=== PATIENT | male | born 1940 | race Caucasian/White ===

== ENCOUNTER 2018-03-16 09:45 | Emergency (ER) | payer OTHER ==
[2018-03-16] MEDS ORDERED: WATER FOR INJ,STERILE 10 ML ONE (10:34)
[2018-03-16] MEDS ORDERED: TETANUS & DIPHTHERIA TOX,ADULT 0.5 ML VIAL ONE (10:34)
[2018-03-16] MEDS ORDERED: CEFAZOLIN SODIUM 1 GM/VIAL ONE (10:34)
--- NOTE | 2018-03-16 11:09 | RAD REPORT ---
EXAM DESCRIPTION: RAD - Forearm Right - 03/16/2018 10:56 am CLINICAL HISTORY: Foreign Body COMPARISON: No comparisons FINDINGS: No fracture, dislocation or radiopaque foreign body. Small olecranon spur is noted.
--- NOTE | 2018-03-16 11:52 | ER ---
Nurse's Notes [facility] Name: Evaristo Adams Age: 78 yrs Sex: Male : 1940 Arrival Date: 03/16/2018 Time: 09:49 Bed 13 Private MD: Heriberto Norris T Diagnosis: Right forearm puncture wound Presentation: 03/16 09:56 Presenting complaint: Patient states: He was doing a wood working project when he got a aj1 large splinter stuck into his right forearm. States injury happened at approximately 9:00 this morning. Puncture wound noted to right forearm, no bleeding noted at this time. Transition of care: patient was not received from another setting of care. Onset of symptoms was March 16, 2018 at 09:00. Risk Assessment: Do you want to hurt yourself or someone else? Patient reports no desire to harm self or others. Initial Sepsis Screen: Does the patient meet any 2 criteria? No. Patient's initial sepsis screen is negative. Does the patient have a suspected source of infection? No. Patient's initial sepsis screen is negative. Care prior to arrival: None. 09:56 Method Of Arrival: Ambulatory aj1 09:56 Acuity: CAITLIN 4 aj1 Triage Assessment: 10:04 General: Appears in no apparent distress. comfortable, Behavior is calm, cooperative, aj1 appropriate for age. Pain: Denies pain. Neuro: Level of Consciousness is awake, alert, obeys commands. Cardiovascular: Patient's skin is warm and dry. Respiratory: Airway is patent Respiratory effort is even, unlabored, Respiratory pattern is regular, symmetrical. Derm: Skin is pink, warm \\T\\ dry. normal. Musculoskeletal: Circulation, motion, and sensation intact. Injury Description: Puncture sustained to palmar aspect of right forearm. Historical: - Allergies: 10:04 Sulfa (Sulfonamide Antibiotics); aj1 10:04 Lipitor; aj1 10:04 Prevacid; aj1 10:04 Metoclopramide; aj1 10:04 Neomycin; aj1 10:04 Vytorin 10-10; aj1 - Home Meds: 10:04 valsartan 320 mg oral tab 1 tab once daily [Active]; metoprolol tartrate 50 mg Oral tab aj1 1 tab once daily [Active]; simvastatin 80 mg Oral tab daily [Active]; esomeprazole magnesium 40 mg oral cpDR 1 cap once daily [Active]; levothyroxine 75 mcg tab 1 tab once daily [Active]; niacin 500 mg Oral tab 1 tab daily [Active]; folic acid 400 mcg Oral tab 1 tab once daily [Active]; aspirin 81 mg Oral chew 1 tab once daily [Active]; calcium carbonate 650 mg calcium (1,625 mg) Oral tab daily [Active]; multivitamin oral cap daily [Active]; montelukast 10 mg oral tab 1 tab once daily [Active]; fluticasone 50 mcg/actuation nasal spsn 1 spray once daily [Active]; fexofenadine 180 mg Oral tab 1 tab once daily [Active]; Metamucil Smooth Texture Oral twice a day [Active]; Colace 100 mg oral cap 2 caps once daily [Active]; - PMHx: 10:04 Hyperlipidemia; Hypertension; Hypothyroidism; GERD; aj1 - PSHx: 10:04 triple bypass; rotator cuff repair; aj1 - Immunization history:: Flu vaccine is up to date. Last tetanus immunization: unknown. - Social history:: Smoking status: Patient/guardian denies using tobacco. - Ebola Screening: : Patient denies travel to an Ebola-affected area in the 21 days before illness onset. Screenin:10 Abuse screen: Denies threats or abuse. Nutritional screening: No deficits noted. tw2 Tuberculosis screening: No symptoms or risk factors identified. Fall Risk None identified. Assessment: 10:26 Reassessment: provider at bedside at this time. General: Appears in no apparent tw2 distress. well groomed, Behavior is calm, cooperative, appropriate for age. Pain: Complains of pain in right arm and palmar aspect of right forearm. Neuro: Level of Consciousness is awake, alert, obeys commands, Oriented to person, place, time, Appropriate for age. Cardiovascular: Denies chest pain, shortness of breath, Heart tones S1 S2 Capillary refill < 3 seconds Patient's skin is warm and dry. Respiratory: Airway is patent Respiratory effort is even, unlabored, Respiratory pattern is regular, symmetrical, Breath sounds are clear bilaterally. GI: No signs and/or symptoms were reported involving the gastrointestinal system. : No signs and/or symptoms were reported regarding the genitourinary system. EENT: No signs and/or symptoms were reported regarding the EENT system. Derm: foreign body noted in palmar aspect of right forearm, pt states "it was a wood splinter, i tried to get out but it broke off in there". Musculoskeletal: Circulation, motion, and sensation intact. Range of motion: intact in all extremities. 10:54 Reassessment: Patient appears in no apparent distress at this time. No changes from tw2 previously documented assessment. Patient and/or family updated on plan of care and expected duration. Pain level reassessed. Patient is alert, oriented x 3, equal unlabored respirations, skin warm/dry/pink. Vital Signs: 10:04 BP 150 / 84; Pulse 62; Resp 18; Temp 97.8(O); Pulse Ox 98% on R/A; Weight 86.18 kg (R); aj1 Height 6 ft. 0 in. (182.88 cm) (R); Pain 0/10; 11:22 BP 143 / 74; Pulse 56; Resp 17; Pulse Ox 99% on R/A; tw2 12:25 BP 149 / 74; Pulse 66; Resp 17; Pulse Ox 98% on R/A; tw2 10:04 Body Mass Index 25.77 (86.18 kg, 182.88 cm) aj1 ED Course: 09:49 Patient arrived in ED. mr 09:49 Heriberto Norris MD is Private Physician. mr 09:51 Berny Loaiza MD is Attending Physician. kdr 09:58 Triage completed. aj1 10:04 Arm band placed on Patient placed in an exam room. aj1 10:10 Annie Jacobo, RN is Primary Nurse. tw2 10:10 Bed in low position. Adult w/ patient. Pulse ox on. NIBP on. tw2 10:55 X-ray completed. Portable x-ray completed in exam room. jr1 10:56 Forearm Right XRAY In Process Unspecified. EDMS 11:50 Harish Varghese MD is Referral Physician. kdr 12:26 Dressings: Glenys x 1 palmar aspect of right forearm non-adherent dressing x 1 palmar tw2 aspect of right forearm 4X4s X 2; palmar aspect of right forearm. 12:26 No provider procedures requiring assistance completed. Patient did not have IV access tw2 during this emergency room visit. Administered Medications: 10:40 Drug: Tetanus-Diphtheria Toxoid Adult 0.5 ml {Rider Ticket Worker: [employer]. Exp: tw2 05/04/2020. Lot #: [id number]. } Route: IM; Site: right deltoid; 11:53 Follow up: Response: No adverse reaction tw2 10:45 Drug: Ancef 1 grams Route: IM; Site: right gluteus; tw2 11:54 Follow up: Response: No adverse reaction tw2 Outcome: 11:51 Discharge ordered by . kdr 12:27 Discharged to home ambulatory, with significant other. tw2 12:27 Condition: stable 12:27 Discharge instructions given to patient, significant other, Instructed on discharge instructions, follow up and referral plans. medication usage, wound care, Demonstrated understanding of instructions, follow-up care, medications, wound care, Prescriptions given X 2. 12:27 Patient left the ED. tw2 Signatures: Dispatcher [employer] EDVianney Nava, MATTY RN Berny Dixon MD MD kdr Rivera, Maria mr Scotty, Flakita dowd1 Annie Jacobo RN RN tw2
--- NOTE | 2018-03-16 11:52 | EDPHYS ---
Physician Documentation [facility] Name: Evaristo Adams Age: 78 yrs Sex: Male : 1940 Arrival Date: 03/16/2018 Time: 09:49 Bed 13 Private MD: Heriberto Norris T ED Physician Berny Loaiza HPI: 03/16 18:37 This 78 yrs old Male presents to ER via Ambulatory with complaints of Foreign kdr body in arm. 18:37 The patient or guardian complains of injury, penetrating injury, Wood splinter, a kdr puncture wound, Splinter of wood. The complaints affect the dorsal aspect of right forearm. Context: The problem was sustained at home. Onset: The symptoms/episode began/occurred just prior to arrival. Treatment prior to arrival includes: no previous treatment. Modifying factors: The symptoms are alleviated by nothing. the symptoms are aggravated by nothing. Associated signs and symptoms: The patient has no apparent associated signs or symptoms. Severity of symptoms: At their worst the symptoms were mild, in the emergency department the symptoms are unchanged. The patient has not experienced similar symptoms in the past. 18:37 large splinter punctured his right forearm. He was able to remove some but not all of kdr the wood.. Historical: - Allergies: 10:04 Sulfa (Sulfonamide Antibiotics); aj1 10:04 Lipitor; aj1 10:04 Prevacid; aj1 10:04 Metoclopramide; aj1 10:04 Neomycin; aj1 10:04 Vytorin 10-10; aj1 - Home Meds: 10:04 valsartan 320 mg oral tab 1 tab once daily [Active]; metoprolol tartrate 50 mg Oral tab aj1 1 tab once daily [Active]; simvastatin 80 mg Oral tab daily [Active]; esomeprazole magnesium 40 mg oral cpDR 1 cap once daily [Active]; levothyroxine 75 mcg tab 1 tab once daily [Active]; niacin 500 mg Oral tab 1 tab daily [Active]; folic acid 400 mcg Oral tab 1 tab once daily [Active]; aspirin 81 mg Oral chew 1 tab once daily [Active]; calcium carbonate 650 mg calcium (1,625 mg) Oral tab daily [Active]; multivitamin oral cap daily [Active]; montelukast 10 mg oral tab 1 tab once daily [Active]; fluticasone 50 mcg/actuation nasal spsn 1 spray once daily [Active]; fexofenadine 180 mg Oral tab 1 tab once daily [Active]; Metamucil Smooth Texture Oral twice a day [Active]; Colace 100 mg oral cap 2 caps once daily [Active]; - PMHx: 10:04 Hyperlipidemia; Hypertension; Hypothyroidism; GERD; aj1 - PSHx: 10:04 triple bypass; rotator cuff repair; aj1 - Immunization history:: Flu vaccine is up to date. Last tetanus immunization: unknown. - Social history:: Smoking status: Patient/guardian denies using tobacco. - Ebola Screening: : Patient denies travel to an Ebola-affected area in the 21 days before illness onset. ROS: 18:37 Constitutional: Negative for fever, chills, and weight loss, Eyes: Negative for injury, kdr pain, redness, and discharge, Neck: Negative for injury, pain, and swelling, Cardiovascular: Negative for chest pain, palpitations, and edema, Respiratory: Negative for shortness of breath, cough, wheezing, and pleuritic chest pain, Abdomen/GI: Negative for abdominal pain, nausea, vomiting, diarrhea, and constipation. 18:37 MS/extremity: Positive for pain, tenderness, of the dorsal aspect of right forearm. Exam: 18:37 Constitutional: This is a well developed, well nourished patient who is awake, alert, kdr and in no acute distress. 18:37 Musculoskeletal/extremity: Extremities: pain, Apparent FB to right forearm about 1.5 cm in length. Some distance from the entrance wound. Vital Signs: 10:04 BP 150 / 84; Pulse 62; Resp 18; Temp 97.8(O); Pulse Ox 98% on R/A; Weight 86.18 kg (R); aj1 Height 6 ft. 0 in. (182.88 cm) (R); Pain 0/10; 11:22 BP 143 / 74; Pulse 56; Resp 17; Pulse Ox 99% on R/A; tw2 12:25 BP 149 / 74; Pulse 66; Resp 17; Pulse Ox 98% on R/A; tw2 10:04 Body Mass Index 25.77 (86.18 kg, 182.88 cm) aj1 MDM: 11:51 Patient medically screened. kdr 18:37 Data reviewed: vital signs, radiologic studies. Counseling: I had a detailed discussion kdr with the patient and/or guardian regarding: the historical points, exam findings, and any diagnostic results supporting the discharge/admit diagnosis, radiology results, the need for outpatient follow up, Given distance of FB from entrance wound, concerned that this may need to be opened up more fully and washed out - will defer to plastics. The patient has seen a plastics MD previously and will call today for an appointment. 03/16 10:32 Order name: Forearm Right XRAY; Complete Time: 11:35 kdr 03/16 11:50 Order name: Misc. Order: Clean and dress wound; Complete Time: 12:08 kdr Administered Medications: 10:40 Drug: Tetanus-Diphtheria Toxoid Adult 0.5 ml {Uphol[employer] Outside: [employer]. Exp: 05/04/2020. Lot #: [id number]. } Route: IM; Site: right deltoid; 11:53 Follow up: Response: No adverse reaction tw2 10:45 Drug: Ancef 1 grams Route: IM; Site: right gluteus; tw2 11:54 Follow up: Response: No adverse reaction tw2 Disposition: 03/16/18 11:51 Discharged to Home. Impression: Right forearm puncture wound. - Condition is Stable. - Discharge Instructions: Puncture Wound, [id number]. - Prescriptions for Keflex 500 mg Oral Capsule - take 1 capsule by ORAL route every 6 hours for 7 days; 28 capsule. Tramadol 50 mg Oral Tablet - take 1 tablet by ORAL route every 8 hours as needed; 12 tablet. - Medication Reconciliation Form, Thank You Letter, Antibiotic Education, Prescription Opioid Use form. - Follow up: Harish Varghese MD; When: 2 - 3 days; Reason: If symptoms return, Further diagnostic work-up, Recheck today's complaints, Continuance of care, Re-evaluation by your physician. - Problem is new. - Symptoms have improved. Signatures: Dispatcher [employer] EDVianney Nava RN RN aj1 Berny Loaiza MD MD kdr Annie Jacobo RN RN tw2 Corrections: (The following items were deleted from the chart) 12:27 11:51 03/16/2018 11:51 Discharged to Home. Impression: Right forearm puncture wound. tw2 Condition is Stable. Forms are Medication Reconciliation Form, Thank You Letter, Antibiotic Education, Prescription Opioid Use. Follow up: Harish Varghese; When: 2 - 3 days; Reason: If symptoms return, Further diagnostic work-up, Recheck today's complaints, Continuance of care, Re-evaluation by your physician. Problem is new. Symptoms have improved. kdr
== END 2018-03-16 12:27 | disposition home or self-care (01) ==
LOC: ER 09:45
DX: S51.841A Puncture wound with foreign body of right forearm, initial encounter (principal); X58.XXXA Exposure to other specified factors, initial encounter; Y92.009 Unspecified place in unspecified non-institutional (private) residence as the place of occurrence of the external cause; Z88.2 Allergy status to sulfonamides; Z88.8 Allergy status to other drugs, medicaments and biological substances; E78.5 Hyperlipidemia, unspecified; E03.9 Hypothyroidism, unspecified; I10 Essential (primary) hypertension
CPT/HCPCS: 73090; 90714; 96372; 99284; J0690

== ENCOUNTER 2024-03-23 00:38 | Observation (INO) | payer OTHER ==
[2024-03-23] MEDS ORDERED: ONDANSETRON 4 MG/2 ML VIAL ONE (01:06)
[2024-03-23] MEDS ORDERED: ASPIRIN 81 MG CHEWABLE TABLET ONE (01:07)
[2024-03-23] MEDS ORDERED: MORPHINE 4 MG/ML SYR ONE ×2 (01:07→07:46)
[2024-03-23] MEDS ORDERED: HEPARIN 5000 UNIT/ML 1 ML VIAL ONE ×2 (01:07→14:01)
[2024-03-23 02:01] LABS: Absolute Eosinophils 0.1 K/uL (0-0.5); Absolute Lymphocytes (CBC) 1.8 K/uL (0.7-4.9); Absolute Monocytes 0.8 K/uL (0.1-1.3); Absolute Neutrophil 4.6 K/uL (1.8-8.0); Basophils % 0.6 % (0-1.3); Hematocrit 43.8 % (39.6-49.0); Hemoglobin 14.4 g/dL (13.6-17.9); Lymphocytes % 24.3 % (15.3-44.8); MCH 29.6 pg (27.0-35.0); MCHC 32.8 g/dL (32.0-36.0); MCV 90.1 fL (80-100); MPV 8.8 fL (7.6-11.3); Monocytes % 10.6 % (3.3-12.3); Neutrophils % 62.5 % (41.7-73.7); Platelets 225 thou/uL (152-406); RBC Red Blood Cell Count 4.86 M/uL (4.33-5.43); Red Cell Distribution Width 13.2 % (12.1-15.2)
[2024-03-23 02:06] LABS: ALT/SGPT 23 U/L (16-61); AST/SGOT 14 U/L (15-37); Albumin 4.3 g/dL (3.4-5.0); Albumin/Globulin Ratio 1.2 (1.1-1.8); Alkaline Phosphatase 69 U/L (45-117); Anion Gap 10.8 mEq/L (5.0-15.0); BUN Blood Urea Nitrogen 17 mg/dL (7-18); Bicarbonate 24 mEq/L (21-32); Bilirubin Total 0.4 mg/dL (0.2-1.0); Globulin 3.6 g/dL (2.3-3.5); Glomerular Filtration Rate 51 ml/min (=/>90); Glucose Level 127 mg/dL (74-106); Magnesium 2.6 mg/dL (1.6-2.4); NT PRO-BNP 267 pg/mL (<450); Potassium 3.8 mEq/L (3.5-5.1); Protein, Total 7.9 g/dL (6.4-8.2); Sodium Level 138 mEq/L (136-145); Troponin High Sensitivity 48.2 pg/mL (<58.9)
[2024-03-23] MEDS ORDERED: HEPARIN/D5W 25,000 UNIT/500 ML BAG IV ONE (02:24)
[2024-03-23 02:36] LABS: Bilirubin Direct < 0.2 mg/dL (0-0.2); Bilirubin Indirect, Calculated 0.2 mg/dL (0.2-0.8)
[2024-03-23 03:17] LABS: PT Prothrombin Time 11.4 SECONDS (9.4-12.5); Protime INR 1.02
[2024-03-23] MEDS ORDERED: MORPHINE 4 MG/ML SYR IV PRN (06:10)
[2024-03-23 07:32] LABS: PTT, Activated Partial Thromb 30.8 SECONDS (24.3-36.9)
[2024-03-23] MEDS ORDERED: SODIUM CHLORIDE 0.9% 10ML INJ IV PRN (07:57)
[2024-03-23] MEDS: DOCOSAHEXANOIC AC/EPA 1000 MG PO SCH (09:00)
[2024-03-23] MEDS: ASPIRIN EC 81 MG TAB PO SCH (09:00)
[2024-03-23] MEDS: PANTOPRAZOLE 40 MG INJ IVP SCH (09:00)
[2024-03-23] MEDS: TICAGRELOR 90 MG TABLET PO ONE ×2 (11:55→12:45)
[2024-03-23] MEDS ORDERED: LIDOCAINE 1% 20 ML MDV ONE (14:01)
[2024-03-23] MEDS ORDERED: HEPA 1000U/500MLS 1,000 UNIT/500 ML BAG IV ONE (14:01)
[2024-03-23] MEDS ORDERED: FENTANYL CITR 100 MCG/2 ML ONE (14:01)
[2024-03-23] MEDS ORDERED: MIDAZOLAM HCL 2 MG/2 ML INJ ONE (14:01)
[2024-03-23] MEDS ORDERED: CLOPIDOGREL 75 MG TABLET ONE (14:02)
[2024-03-23] MEDS ORDERED: TICAGRELOR 90 MG TABLET PO ONE (14:02)
[2024-03-23] MEDS ORDERED: HEPARIN 10,000 UNIT/10 ML VIAL IV ONE (14:02)
[2024-03-23] MEDS ORDERED: ASPIRIN 325 MG TAB ONE (14:03)
--- NOTE | 2024-03-23 14:11 | RAD REPORT ---
EXAM DESCRIPTION: RAD - Chest Single View - 03/23/2024 1:59 pm CLINICAL HISTORY: CHEST PAIN Chest pain. COMPARISON: <Comparisons> FINDINGS: Portable technique limits examination quality. The lungs are grossly clear. The heart is upper limit of normal in size. Small left pleural effusion. Sternotomy wires present. IMPRESSION: No acute intrathoracic process suspected.
[2024-03-23] MEDS ORDERED: NA CHLORIDE 0.9% 500 ML ONE (14:15)
[2024-03-23] MEDS: NITROGLYCERIN 0.4 MG/TAB SL ONE (16:10)
[2024-03-23] MEDS: MORPHINE 4 MG/ML SYR ONE (16:11)
--- NOTE | 2024-03-23 16:18 | ER ---
Nurse's Notes [facility] Name: Evaristo Adams Age: 84 yrs Sex: Male : 1940 Arrival Date: 03/23/2024 Time: 00:37 Bed 20 Private MD: Diagnosis: Unstable angina pectoris Presentation: 03/23 00:43 Chief complaint: Patient states: Started having chest pain that radiates to left arm. vc1 Coronavirus screen: Vaccine status: Patient reports receiving the 2nd dose of the covid vaccine. plus 3 boosters Client denies travel out of the [place] in the last 14 days. At this time, the client does not indicate any symptoms associated with coronavirus-19. Ebola Screen: Patient negative for fever greater than or equal to 101.5 degrees Fahrenheit, and additional compatible Ebola Virus Disease symptoms Patient denies exposure to infectious person. Patient denies travel to an Ebola-affected area in the 21 days before illness onset. No symptoms or risks identified at this time. Initial Sepsis Screen: Does the patient meet any 2 criteria? No. Patient's initial sepsis screen is negative. Does the patient have a suspected source of infection? No. Patient's initial sepsis screen is negative. Risk Assessment: Do you want to hurt yourself or someone else? Patient reports no desire to harm self or others. Onset of symptoms was March 23, 2024. 00:43 Method Of Arrival: Ambulatory vc1 00:43 Acuity: CAITLIN 3 vc1 Triage Assessment: 00:51 General: Appears in no apparent distress. comfortable, well groomed, well developed, vc1 Behavior is cooperative, anxious. Pain: Complains of pain in right breast and left breast Pain radiates to left arm Pain currently is 8 out of 10 on a pain scale. Quality of pain is described as sharp. EENT: No deficits noted. No signs and/or symptoms were reported regarding the EENT system. Neuro: Level of Consciousness is awake, alert, obeys commands, Oriented to person, place, time, situation, Appropriate for age. Cardiovascular: Reports chest pain, Rhythm is sinus rhythm. Respiratory: Airway is patent Respiratory effort is even, unlabored, Respiratory pattern is regular, symmetrical, Breath sounds are clear bilaterally. GI: Abdomen is flat, non-distended. Derm: Skin is intact, is healthy with good turgor, Skin is dry, Skin is normal, Skin temperature is warm. Historical: - Allergies: 00:46 Lipitor; vc1 00:46 Metoclopramide; vc1 00:46 Neomycin; vc1 00:46 Prevacid; vc1 00:46 Sulfa (Sulfonamide Antibiotics); vc1 00:46 Vytorin 10-10; vc1 - PMHx: 00:46 GERD; Hyperlipidemia; Hypothyroidism; Hypertension; vc1 - PSHx: 00:46 triple bypass (yr); Shoulder (yr); vc1 - Immunization history:: Client reports receiving the 2nd dose of the Covid vaccine, Pneumococcal vaccine is up to date, Flu vaccine is up to date. - Infectious Disease History:: Denies. - Social history:: Smoking status: Patient denies any tobacco usage or history of. - Family history:: not pertinent. Screenin:48 [facility] ED Fall Risk Assessment (Adult) History of falling in the last 3 months, vc1 including since admission No falls in past 3 months (0 pts) Confusion or Disorientation No (0 pts) Intoxicated or Sedated No (0 pts) Impaired Gait No (0 pts) Mobility Assist Device Used No (0 pt) Altered Elimination No (0 pt) Score/Fall Risk Level 0 - 2 = Low Risk Oriented to surroundings, Maintained a safe environment, Educated pt \T\ family on fall prevention, incl call for assistance when getting out of bed. Abuse screen: Denies threats or abuse. Nutritional screening: No deficits noted. Tuberculosis screening: No symptoms or risk factors identified. Assessment: 00:48 General: Appears in no apparent distress. comfortable, Behavior is calm, cooperative, jj7 appropriate for age. Pain: Complains of pain in chest, left arm and mouth Pain began suddenly, 2 hours ago. Cardiovascular: Reports chest pain. 07:00 Reassessment: Patient appears in no apparent distress at this time. Patient and/or db family updated on plan of care and expected duration. Pain level reassessed. Patient is alert, oriented x 3, equal unlabored respirations, skin warm/dry/pink. General: Appears in no apparent distress. comfortable, Behavior is calm, cooperative. Pain: Complains of pain in chest. Pain: Pain radiates to left arm. Neuro: Level of Consciousness is awake, alert, obeys commands, Oriented to person, place, time, situation. Respiratory: Airway is patent Respiratory effort is even, unlabored, Respiratory pattern is regular, symmetrical. 08:00 Reassessment: Patient appears in no apparent distress at this time. Patient and/or db family updated on plan of care and expected duration. Pain level reassessed. Patient is alert, oriented x 3, equal unlabored respirations, skin warm/dry/pink. 09:00 Reassessment: Patient appears in no apparent distress at this time. Patient and/or db family updated on plan of care and expected duration. Pain level reassessed. Patient is alert, oriented x 3, equal unlabored respirations, skin warm/dry/pink. Vital Signs: 00:43 BP 147 / 73; Pulse 69; Resp 19; Pulse Ox 100% ; Weight 88 kg; Height 6 ft. 0 in. ; Pain vc1 8/10; 01:45 BP 138 / 76; Pulse 67; Resp 15; Pulse Ox 97% ; jj7 02:45 BP 136 / 97; Pulse 66; Resp 16; Pulse Ox 97% ; jj7 03:45 BP 153 / 83; Pulse 84; Resp 20; Pulse Ox 98% ; jj7 04:45 BP 134 / 71; Pulse 65; Resp 13; Pulse Ox 96% ; jj7 05:45 BP 142 / 76; Pulse 69; Resp 18; Pulse Ox 98% ; jj7 07:00 BP 146 / 82; Pulse 69; Resp 18; Temp 98; Pulse Ox 99% ; db 07:45 BP 135 / 78; Pulse 68; Resp 15; Pulse Ox 96% on R/A; db 00:43 Body Mass Index 26.31 (88.00 kg, 182.88 cm) vc1 00:43 Pain Scale: Adult vc1 [place] Coma Score: 01:18 Eye Response: spontaneous(4). Motor Response: obeys commands(6). Verbal Response: sp4 oriented(5). Total: 15. NIH Stroke Scale Scores: 06:04 NIHSS Score: 0 sp4 ED Course: 00:37 Patient arrived in ED. jj6 00:43 Conrad Ramos MD is Attending Physician. sp4 00:46 Triage completed. vc1 00:48 Provided Education on: USE OF CALL MEADOWS. jj7 00:48 Warm blanket given. jj7 00:48 Inserted saline lock: 20 gauge in left antecubital area, using aseptic technique. Blood jj7 collected. 00:52 Savi Noe RN is Primary Nurse. jj7 00:53 Patient has correct armband on for positive identification. Placed in gown. Bed in low vc1 position. as400 programmer on. Pulse ox on. NIBP on. 06:11 Ashley Morales MD is Hospitalizing Provider. sp4 07:20 Report given to EDGARD STARR. jj7 08:00 Inserted saline lock: 22 gauge in right antecubital area, using aseptic technique. db Blood collected. Flushed with 10 mL NS. 09:54 No provider procedures requiring assistance completed. Patient admitted, IV remains in db place. O2 via ROOMAIR. 09:59 Patient placed in an exam room. db Administered Medications: 01:20 Drug: Heparin (IL-Bolus No thrombolytic) - HEParin IVP 60 units/kg IVP once; Max 5000 jj7 units {Co-Signature: pc2 (Ramila Camarena RN).} Route: IVP; Site: left antecubital; 02:00 Follow up: Response: No adverse reaction jj7 01:21 Drug: morphine IVP or IV 4 mg IVP once over 4 mins Route: IVP; Infused Over: 4 mins; jj7 Site: left antecubital; 02:00 Follow up: Response: Marked relief of symptoms; Pain is decreased jj7 02:18 Follow up: Response: Marked relief of symptoms; Pain is decreased jj7 01:22 Drug: Aspirin PO Chewable Tablet 324 mg PO once; 81 mg tablets x 4 Route: PO; jj7 02:00 Follow up: Response: No adverse reaction jj7 01:22 Drug: Ondansetron IVP 4 mg IVP once; over 2 minutes Route: IVP; Site: left antecubital; jj7 02:00 Follow up: Response: No adverse reaction jj7 02:51 Drug: Heparin ([place] Drip) 12 units/kg/hr - ([place] [address] units, D5W IV 500 ml) IV at jj7 calculated rate Per protocol; Max initial rate 1000 units/hr {Co-Signature: pc2 (Ramila Camarena RN).} Route: IV; Rate: calculated rate; Site: left antecubital; 09:00 Follow up: Response: No adverse reaction db 07:52 Drug: morphine IVP or IV 4 mg IVP once over 4 mins Route: IVP; Infused Over: 4 mins; db Site: left antecubital; 09:00 Follow up: Response: No adverse reaction db Medication: 00:52 VIS not applicable for this client. vc1 Outcome: 06:11 Decision to Hospitalize by Provider. sp4 09:54 Admitted to Med/surg accompanied by nurse, via wheelchair, room 205, Other BEDSIDE db REPORT GIVEN. HEPARIN HANDOFFF DONE AT BEDSIDE 09:54 Condition: stable 09:54 Instructed on the need for admit, 10:00 Patient left the ED. db NIH Stroke Scale - NIH Stroke Score Date: 03/23/2024 Time: 06:04 Total Score = 0 10. Dysarthria (speech clarity - read or repeat words) - 0(Normal) 11. Extinction and Inattention (visual/tactile/auditory/spatial/personal) - 0(No abnormality) 1a. Level of Consciousness (LOC) - 0(Alert) 1b. Level of Consciousness (LOC) (Month \T\ Age) - 0(Both) 1c. LOC Commands (Open \T\ Closes Eyes/Insurance Sales Producer) - 0(Both) 2. Best Gaze (Lateral Gaze Paresis) - 0(Normal) 3. Visual Field Loss - 0(No visual loss) 4. Facial Palsy - 0(Normal) 5a. Left Arm: Motor (10-second hold) - 0(No drift) 5b. Right Arm: Motor (10-second hold) - 0(No drift) 6a. Left Leg: Motor (5-second hold - always test supine) - 0(No drift) 6b. Right Leg: Motor (5-second hold - always test supine) - 0(No drift) 7. Limb Ataxia (finger/nose \T\ heel/martinez - test with eyes open) - 0(Absent) 8. Sensory Loss (pinprick arms/legs/face) - 0(Normal) 9. Best Language: Aphasia (description/naming/reading) - 0(No aphasia) Initials: sp4 Signatures: Flakita Flores jj6 Suma Lamb RN RN vc1 Savi Noe RN RN jj7 Franca Morales RN RN db Conrad Ramos MD MD sp4 Ramila Camarena RN pc2 Corrections: (The following items were deleted from the chart) 00:50 00:43 BP 147 / 73; Pulse 194bpm; Resp 19bpm; Pulse Ox 100%; 88 kg; Height 6 ft. vc1 0 in.; BMI: 26.3; Pain 8/10, Adult; vc1
--- NOTE | 2024-03-23 16:18 | EDPHYS ---
Physician Documentation [facility] Name: Evaristo Adams Age: 84 yrs Sex: Male : 1940 Arrival Date: 03/23/2024 Time: 00:37 Bed 20 Private MD: ED Physician Conrad Ramos HPI: 03/23 00:43 This 84 yrs old Male presents to ER via Unassigned with complaints of Chest sp4 Pain. 06:04 Patient with history of CAD and CABG presents with persistent chest pressure / pain sp4 that is non exertional . Historical: - Allergies: 00:46 Lipitor; vc1 00:46 Metoclopramide; vc1 00:46 Neomycin; vc1 00:46 Prevacid; vc1 00:46 Sulfa (Sulfonamide Antibiotics); vc1 00:46 Vytorin 10-10; vc1 - PMHx: 00:46 GERD; Hyperlipidemia; Hypothyroidism; Hypertension; vc1 - PSHx: 00:46 triple bypass (yr); Shoulder (yr); vc1 - Immunization history:: Client reports receiving the 2nd dose of the Covid vaccine, Pneumococcal vaccine is up to date, Flu vaccine is up to date. - Infectious Disease History:: Denies. - Social history:: Smoking status: Patient denies any tobacco usage or history of. - Family history:: not pertinent. ROS: 06:04 Constitutional: Negative for fever, chills, and weight loss, Positive chest pain sp4 06:04 All other systems are negative, Exam: 01:18 ECG was reviewed by the Attending Physician. 00:35 time for EKG sp4 06:04 Constitutional: This is a well developed, well nourished patient who is awake, alert, sp4 and in no acute distress. Head/Face: Normocephalic, atraumatic. Eyes: Pupils equal round and reactive to light, extra-ocular motions intact. Lids and lashes normal. Conjunctiva and sclera are not injected. Cornea within normal limits. Periorbital areas with no swelling, redness, or edema. ENT: Nares patent. No nasal discharge, no septal abnormalities noted. Tympanic membranes are normal and external auditory canals are clear. Oropharynx with no redness, swelling, or masses, exudates, or evidence of obstruction, uvula midline. Mucous membranes moist. Neck: Trachea midline, no thyromegaly or masses palpated, and no cervical lymphadenopathy. Supple, full range of motion without nuchal rigidity, or vertebral point tenderness. Chest/axilla: Normal chest wall appearance and motion. Nontender with no deformity. No lesions are appreciated. Cardiovascular: Regular rate and rhythm with a normal S1 and S2. No gallops, murmurs, or rubs. Normal PMI, no JVD. No pulse deficits. Respiratory: Lungs have equal breath sounds bilaterally, clear to auscultation and percussion. No rales, rhonchi or wheezes noted. No increased work of breathing, no retractions or nasal flaring. Abdomen/GI: Soft, with normal bowel sounds. No distension or tympany. No guarding or rebound. No evidence of tenderness throughout. Back: No spinal tenderness. No costovertebral tenderness. Skin: Warm, dry with normal turgor. Normal color with no rashes, no lesions, and no evidence of cellulitis. MS/ Extremity: Pulses equal, no cyanosis. Neurovascular intact. Full, normal range of motion. Neuro: Awake and alert, GCS 15, oriented to person, place, time, and situation. Cranial nerves II-XII grossly intact. Motor strength 5/5 in all extremities. Sensory grossly intact. Psych: Awake, alert, with orientation to person, place and time. Behavior, mood, and affect are within normal limits Vital Signs: 00:43 BP 147 / 73; Pulse 69; Resp 19; Pulse Ox 100% ; Weight 88 kg; Height 6 ft. 0 in. ; Pain vc1 8/10; 01:45 BP 138 / 76; Pulse 67; Resp 15; Pulse Ox 97% ; jj7 02:45 BP 136 / 97; Pulse 66; Resp 16; Pulse Ox 97% ; jj7 03:45 BP 153 / 83; Pulse 84; Resp 20; Pulse Ox 98% ; jj7 04:45 BP 134 / 71; Pulse 65; Resp 13; Pulse Ox 96% ; jj7 05:45 BP 142 / 76; Pulse 69; Resp 18; Pulse Ox 98% ; jj7 07:00 BP 146 / 82; Pulse 69; Resp 18; Temp 98; Pulse Ox 99% ; db 07:45 BP 135 / 78; Pulse 68; Resp 15; Pulse Ox 96% on R/A; db 00:43 Body Mass Index 26.31 (88.00 kg, 182.88 cm) vc1 00:43 Pain Scale: Adult vc1 NIH Stroke Scale Scores: 06:04 NIHSS Score: 0 sp4 Kamila Coma Score: 01:18 Eye Response: spontaneous(4). Motor Response: obeys commands(6). Verbal Response: sp4 oriented(5). Total: 15. MDM: 00:50 Patient medically screened. sp4 06:04 Differential diagnosis: acute myocardial infarction, acute pericarditis, anxiety, sp4 coronary artery disease chest wall pain, congestive heart failure esophagitis, gastritis. HEART Score: History: Highly Suspicious (2), ECG: Significant ST-deviation (2), Age: > or = 65 years (2), Risk Factors: > or = 3 Risk factors for atherosclerotic disease (2), Troponin: < or = 1 x Normal Limit (0), Total Score = 8. The patient was given aspirin in the Emergency Department. Data reviewed: vital signs, nurses notes, lab test result(s), EKG, radiologic studies, plain films. Consideration of Admission/Observation Patient was admitted/placed on observation. Escalation of care including admission/observation considered. Management of patient was discussed with the following: Hospitalist: Admission team . Unleavened Dough Mixer: Tahira WRIGHT Cardiology . ED course: Admitted to Medicine, initiated Heparin . 03/23 00:44 Order name: XRAY Chest (1 view) [facility] 03/23 00:44 Order name: EKG; Complete Time: 00:44 [facility] 03/23 00:44 Order name: Cardiac monitoring; Complete Time: 00:58 [facility] 03/23 00:44 Order name: EKG - Nurse/Tech; Complete Time: 00:58 [facility] 03/23 00:44 Order name: IV Saline Lock; Complete Time: 00:58 [facility] 03/23 00:44 Order name: Labs collected and sent; Complete Time: 00:58 [facility] 03/23 00:44 Order name: O2 Per Protocol; Complete Time: 00:58 [facility] 03/23 00:44 Order name: O2 Sat Monitoring; Complete Time: 00:58 4 EC:18 Rate is 69 beats/min. Rhythm is regular, Normal Sinus Rhythm. Left axis deviation sp4 noted. TX interval is prolonged. QRS interval is normal. QT interval is normal. No Q waves. T waves are Normal. ST Segment is depressed in leads V2, V3. Clinical impression: No evidence of ischemia. Interpreted by me. Reviewed by me. Administered Medications: 01:20 Drug: Heparin (IL-Bolus No thrombolytic) - HEParin IVP 60 units/kg IVP once; Max 5000 jj7 units {Co-Signature: pc2 (Ramila Camarena RN).} Route: IVP; Site: left antecubital; 02:00 Follow up: Response: No adverse reaction jj7 01:21 Drug: morphine IVP or IV 4 mg IVP once over 4 mins Route: IVP; Infused Over: 4 mins; jj7 Site: left antecubital; 02:00 Follow up: Response: Marked relief of symptoms; Pain is decreased jj7 02:18 Follow up: Response: Marked relief of symptoms; Pain is decreased jj7 01:22 Drug: Aspirin PO Chewable Tablet 324 mg PO once; 81 mg tablets x 4 Route: PO; jj7 02:00 Follow up: Response: No adverse reaction jj7 01:22 Drug: Ondansetron IVP 4 mg IVP once; over 2 minutes Route: IVP; Site: left antecubital; jj7 02:00 Follow up: Response: No adverse reaction jj7 02:51 Drug: Heparin (IL Drip) 12 units/kg/hr - ([place] [address] units, D5W IV 500 ml) IV at jj7 calculated rate Per protocol; Max initial rate 1000 units/hr {Co-Signature: pc2 (Ramila Camarena RN).} Route: IV; Rate: calculated rate; Site: left antecubital; 09:00 Follow up: Response: No adverse reaction db 07:52 Drug: morphine IVP or IV 4 mg IVP once over 4 mins Route: IVP; Infused Over: 4 mins; db Site: left antecubital; 09:00 Follow up: Response: No adverse reaction db Disposition Summary: 03/23/24 06:11 Hospitalization Ordered Notes: Hospitalization Status: Inpatient Admission sp4 Provider: Ashley Morales sp4 Location: Telemetry/[facility] (Inpatient) sp4 Condition: Stable sp4 Problem: new sp4 Symptoms: have improved sp4 Bed/Room Type: Standard sp4 Room Assignment: 205(03/23/24 07:35) hb Diagnosis - Unstable angina pectoris sp4 Forms: - Medication Reconciliation Form sp4 - SBAR form sp4 - Leadership Thank You Letter sp4 NIH Stroke Scale - NIH Stroke Score Date: 03/23/2024 Time: 06:04 Total Score = 0 10. Dysarthria (speech clarity - read or repeat words) - 0(Normal) 11. Extinction and Inattention (visual/tactile/auditory/spatial/personal) - 0(No abnormality) 1a. Level of Consciousness (LOC) - 0(Alert) 1b. Level of Consciousness (LOC) (Month \T\ Age) - 0(Both) 1c. LOC Commands (Open \T\ Closes Eyes/Senior It Recruiter) - 0(Both) 2. Best Gaze (Lateral Gaze Paresis) - 0(Normal) 3. Visual Field Loss - 0(No visual loss) 4. Facial Palsy - 0(Normal) 5a. Left Arm: Motor (10-second hold) - 0(No drift) 5b. Right Arm: Motor (10-second hold) - 0(No drift) 6a. Left Leg: Motor (5-second hold - always test supine) - 0(No drift) 6b. Right Leg: Motor (5-second hold - always test supine) - 0(No drift) 7. Limb Ataxia (finger/nose \T\ heel/martinez - test with eyes open) - 0(Absent) 8. Sensory Loss (pinprick arms/legs/face) - 0(Normal) 9. Best Language: Aphasia (description/naming/reading) - 0(No aphasia) Initials: sp4 Signatures: Dispatcher [employer] EDUT Anabella Garcia RN RN hb Suma Lamb, RN RN vc1 Savi Noe RN RN jj7 Franca Morales RN Conrad Hoskins MD MD sp4 Ramila Camarena RN pc2 Corrections: (The following items were deleted from the chart) 00:45 00:44 BASIC METABOLIC PANEL+C.LAB.BRZ ordered. EDMS EDMS 00:45 00:44 CBC+H.LAB.BRZ ordered. EDMS EDMS 00:45 00:44 HEPATIC FUNCTION+C.LAB.BRZ ordered. EDMS EDMS 00:45 00:44 MAGNESIUM+C.LAB.BRZ ordered. EDMS EDMS 00:45 00:44 PROBNP+C.LAB.BRZ ordered. EDMS EDMS 00:45 00:44 PROTIME (+INR)+COAG.LAB.BRZ ordered. EDMS EDMS 00:45 00:44 Troponin High Sensitivity+C.LAB.BRZ ordered. EDMS EDMS 01:21 01:18 Rate is 69 beats/min. Rhythm is regular, Normal Sinus Rhythm. Left axis sp4 deviation noted. TX interval is prolonged. QRS interval is normal. QT interval is normal. No Q waves. T waves are Normal. No ST changes noted. Clinical impression: No evidence of ischemia. Interpreted by me. Reviewed by me. sp4 07:35 06:11 sp4 hb
[2024-03-23] MEDS ORDERED: NITROGLYCERIN 0.4 MG/TAB SL PRN (17:08)
[2024-03-23] MEDS: METOPROLOL TAR 25 MG TAB PO SCH (18:00)
[2024-03-23] MEDS: METOPROLOL TAR 25 MG TAB ONE (19:03)
--- NOTE | 2024-03-23 19:36 | P.HP ---
Certification for Inpatient Patient admitted to: Observation With expected LOS: <2 Midnights Patient will require the following post-hospital care: None Practitioner: I am a practitioner with admitting privileges, knowledge of patient current condition, hospital course, and medical plan of care. Services: Services provided to patient in accordance with Admission requirements found in Title 42 Section 412.3 of the Code of Federal Regulations <Imelda Brunner - Last Filed: 03/23/24 08:01> Patient History Date of Service: 03/23/24 Reason for admission: CP with EKG changes History of Present Illness: Mr. Adams is an 84 yo with a pmh of prostate ca, hypertension, hyperlipidemia, CAD s/p CABG, hypothyroidism, and arthritis. He was seen a few days ago in the ED for chest pain and deemed safe to f/u outpatient. He is due next month for an outpatient stress test. He returned to the ED early this am with c/o chest pain intermittently over the left precordial area. He states this lasted longer than normal and worried him so he came in for evaluation. In the ED it was noted that he had deep t wave depressions in V2-V3. The hospitalist program was asked to admit him for further evaluation and cardiology consultation. He was placed on a Heparin drip in the ED. We requested a stress test be performed but secondary to a nationwide communication failure, no lexiscan can be obtained and the test must be delayed. We will admit Mr. Adams for further evaluation and await cardiology direction. Home medications list reviewed: Yes (amlodipine, flomax, fish oil, fluticasone, pepcid) - Past Medical/Surgical History Diabetic: No -: HTN -: HLD -: CAD s/p CABG -: prostate ca -: hypothyroidism -: arthritis -: CABG -: left rotator cuff Psychosocial/ Personal History: Lives at home with his , plays golf, active - Family History Mother -: Heart disease Brother -: Heart disease, Other (see notes) ( at 30) Sister -: Heart disease, Cancer - Social History Smoking Status: Unknown if ever smoked Alcohol use: No CD- Drugs: No Caffeine use: Yes Place of Residence: Home <Imelda Brunner - Last Filed: 03/23/24 08:01> Date of Service: 03/23/24 <Phan Shah - Last Filed: 03/24/24 11:29> Allergies ezetimibe [From Zetia] Allergy (Verified 07/21/16 13:44) Rash lansoprazole [From Prevacid] Allergy (Verified 07/21/16 13:45) unknown metoclopramide Allergy (Verified 07/21/16 13:44) Shortness of breath neomycin Allergy (Verified 07/21/16 13:45) Rash simvastatin [From Vytorin 10-10] Allergy (Unverified 03/16/18 12:31) Unknown Sulfa (Sulfonamide Antibiotics) Allergy (Verified 07/21/16 13:44) Rash atorvastatin [From Lipitor] Adverse Reaction (Verified 07/21/16 13:44) increased cholesterol Home Medications: Fexofenadine HCl [Jada Allergy] 180 mg PO DAILY 07/21/16 Fluticasone Propionate [Flonase Allergy Relief] 9.9 ml NS DAILY 07/21/16 Folic Acid 400 mcg PO DAILY 07/21/16 Levothyroxine [Synthroid] 75 mcg PO [id number] 07/21/16 Metoprolol Succinate [Toprol Xl] 25 mg PO DAILY WITH BREAKFAST 07/21/16 Simvastatin [Zocor] 40 mg PO DAILY AFTER SUPPER 07/21/16 Amlodipine [Norvasc] 10 mg PO DAILY 03/23/24 Aspirin [Aspirin EC 81 MG] 81 mg PO DAILY 03/23/24 Docusate Sodium [Stool Softener] 100 mg PO DAILY 03/23/24 Famotidine [Pepcid] 20 mg PO BID 03/23/24 L.acidoph,Paracasei, B.lactis [Probiotic] 1 each PO DAILY 03/23/24 Montelukast [Singulair] 10 mg PO DAILY 03/23/24 Psyllium Husk [Metamucil] 1 dose PO DAILY 03/23/24 Tamsulosin [Flomax] 0.8 mg PO BEDTIME 03/23/24 icosapent ethyL [Vascepa 1 gm Cap] 2 gm PO BID 03/23/24 Review of Systems 10-point ROS is otherwise unremarkable Cardiovascular: Chest Pain, Light Headedness <Brunner,Imelda Keny - Last Filed: 03/23/24 08:01> Physical Examination - Physical Exam General: Alert, In no apparent distress, Oriented x3 HEENT: Atraumatic, Normocephalic Neck: Supple, 2+ carotid pulse no bruit Respiratory: Clear to auscultation bilaterally, Normal air movement Cardiovascular: No edema, Normal pulses, Regular rate/rhythm, Normal S1 S2 Capillary refill: <2 Seconds Gastrointestinal: Soft and benign Musculoskeletal: No clubbing, No swelling Integumentary: No rashes Neurological: Normal speech, Normal tone, Normal affect Lymphatics: No axilla or inguinal lymphadenopathy External genitalia: Deferred Rectal: Deferred - Studies Laboratory Data (last 24 hrs) 03/23/24 03/23/24 03/23/24 01:15 01:15 01:15 WBC 7.30 Hgb 14.4 Hct 43.8 Plt Count 225 PT 11.4 INR 1.02 Sodium 138 Potassium 3.8 BUN 17 Creatinine 1.37 H Glucose 127 H Magnesium 2.6 H Total Bilirubin 0.4 AST 14 L ALT 23 Alkaline Phosphatase 69 <Imelda Brunner - Last Filed: 03/23/24 08:01> - Studies Laboratory Data (last 24 hrs) 03/23/24 03/23/24 03/23/24 08:12 08:10 06:10 WBC Hgb Hct Plt Count PT INR APTT 64.8 H Cancelled Sodium Potassium BUN Creatinine Glucose Magnesium Total Bilirubin AST ALT Alkaline Phosphatase Triglycerides Cancelled Cholesterol Cancelled HDL Cholesterol Cancelled Cholesterol/HDL Ratio Cancelled 03/23/24 03/23/24 03/23/24 01:15 01:15 01:15 WBC 7.30 Hgb 14.4 Hct 43.8 Plt Count 225 PT 11.4 INR 1.02 APTT 30.8 Sodium 138 Potassium 3.8 BUN 17 Creatinine 1.37 H Glucose 127 H Magnesium 2.6 H Total Bilirubin 0.4 AST 14 L ALT 23 Alkaline Phosphatase 69 Triglycerides Cholesterol HDL Cholesterol Cholesterol/HDL Ratio 03/23/24 03/23/24 03/23/24 00:44 00:44 00:44 WBC Cancelled Hgb Cancelled Hct Cancelled Plt Count Cancelled PT Cancelled INR Cancelled APTT Sodium Cancelled Potassium Cancelled BUN Cancelled Creatinine Cancelled Glucose Cancelled Magnesium Cancelled Total Bilirubin Cancelled AST Cancelled ALT Cancelled Alkaline Phosphatase Cancelled Triglycerides Cholesterol HDL Cholesterol Cholesterol/HDL Ratio <Phan Shah - Last Filed: 03/24/24 11:29> Assessment and Plan - Plan Angina with EKG changes Cardiology consult Heparin drip started in ED ECHO NM stress - unable to do today Morphine 4mg q 4h prn NPO for now and advance to [facility] post cardiology ok tele monitor and trend s/s, troponin HTN Metoprolol 25mg po BID HLD Simvastatin per home medication dosing Arthritis pain control Hypothyroidism Levothyroxine .75 mg VTE/GI prophylaxis on heparin drip/protonix Discharge Plan: Home Plan to discharge in: 24 Hours - Advance Directives Does patient have a Living Will: No Does patient have a Durable POA for Healthcare: No <Imelda Brunner - Last Filed: 03/23/24 08:01> Date of Service: 03/23/24 Patient was seen and examined. Events of the last 24 hours have been noted. Spoke with with ALEJANDRO regarding patient's clinical picture after evaluating and examining the patient independently. I performed a substantial part of the MDM during this patient's care today. I personally made or approved the documented management plan and acknowledge its risk of complications. I agree with the findings and documentation provided in the ALEAJNDRO's notes. <Phan Shah - Last Filed: 03/24/24 11:29>
--- NOTE | 2024-03-23 19:41 | P.CNS ---
Date of Consult: 03/23/24 Chief Complaint: CP with EKG changes History of Present Illness: Patient with PMH of CAD s/p CABG in 2004, HTN, HLD, Presented with chest pain that started tuesday but got worse overnight and on way to the ER,pressure like sensation, no radiation, no palpitations, no syncope. Allergies ezetimibe [From Zetia] Allergy (Verified 07/21/16 13:44) Rash lansoprazole [From Prevacid] Allergy (Verified 07/21/16 13:45) unknown metoclopramide Allergy (Verified 07/21/16 13:44) Shortness of breath neomycin Allergy (Verified 07/21/16 13:45) Rash simvastatin [From Vytorin 10-10] Allergy (Unverified 03/16/18 12:31) Unknown Sulfa (Sulfonamide Antibiotics) Allergy (Verified 07/21/16 13:44) Rash atorvastatin [From Lipitor] Adverse Reaction (Verified 07/21/16 13:44) increased cholesterol Home Medications: Fexofenadine HCl [Jada Allergy] 180 mg PO DAILY 07/21/16 Fluticasone Propionate [Flonase Allergy Relief] 9.9 ml NS DAILY 07/21/16 Folic Acid 400 mcg PO DAILY 07/21/16 Levothyroxine [Synthroid] 75 mcg PO [id number] 07/21/16 Metoprolol Succinate [Toprol Xl] 25 mg PO DAILY WITH BREAKFAST 07/21/16 Simvastatin [Zocor] 40 mg PO DAILY AFTER SUPPER 07/21/16 Amlodipine [Norvasc] 10 mg PO DAILY 03/23/24 Aspirin [Aspirin EC 81 MG] 81 mg PO DAILY 03/23/24 Docusate Sodium [Stool Softener] 100 mg PO DAILY 03/23/24 Famotidine [Pepcid] 20 mg PO BID 03/23/24 L.acidoph,Paracasei, B.lactis [Probiotic] 1 each PO DAILY 03/23/24 Montelukast [Singulair] 10 mg PO DAILY 03/23/24 Psyllium Husk [Metamucil] 1 dose PO DAILY 03/23/24 Tamsulosin [Flomax] 0.8 mg PO BEDTIME 03/23/24 icosapent ethyL [Vascepa 1 gm Cap] 2 gm PO BID 03/23/24 - Past Medical/Surgical History Diabetic: No -: HTN -: HLD -: CAD s/p CABG -: prostate ca -: hypothyroidism -: arthritis -: CABG -: left rotator cuff Psychosocial/ Personal History: Lives at home with his , plays golf, active - Family History Mother Medical History: Heart disease Brother Medical History: Heart disease, Other (see notes) Sister Medical History: Heart disease, Cancer - Social History Smoking Status: Former smoker Alcohol use: No CD- Drugs: No Caffeine use: Yes Place of Residence: Home Review of Systems 10-point ROS is otherwise unremarkable Physical Examination General: Alert, In no apparent distress HEENT: Atraumatic, PERRLA, Mucous membr. moist/pink, EOMI, Sclerae nonicteric Neck: Supple, 2+ carotid pulse no bruit, No LAD, Without JVD or thyroid abnormality Respiratory: Clear to auscultation bilaterally, Normal air movement Cardiovascular: Regular rate/rhythm, Normal S1 S2 Gastrointestinal: Normal bowel sounds, No tenderness Musculoskeletal: No tenderness Integumentary: No rashes Neurological: Normal gait, Normal speech, Normal tone, Normal affect Lymphatics: No axilla or inguinal lymphadenopathy Laboratory Data (last 24 hrs) 03/23/24 03/23/24 03/23/24 08:12 01:15 01:15 WBC 7.30 Hgb 14.4 Hct 43.8 Plt Count 225 PT 11.4 INR 1.02 APTT 64.8 H 30.8 Sodium Potassium BUN Creatinine Glucose Magnesium Total Bilirubin AST ALT Alkaline Phosphatase 03/23/24 01:15 WBC Hgb Hct Plt Count PT INR APTT Sodium 138 Potassium 3.8 BUN 17 Creatinine 1.37 H Glucose 127 H Magnesium 2.6 H Total Bilirubin 0.4 AST 14 L ALT 23 Alkaline Phosphatase 69 - Problems (1) NSTEMI (non-ST elevated myocardial infarction) Current Visit: Yes Status: Acute Plan: patient with history of CAD s/p CABG x3, troponin elevated coronary angiogram ASA 81 mg daily Brilinta 180 x1 continue heparin drip. (2) HTN (hypertension) Current Visit: Yes Status: Acute Plan: resume patient home medications get echo (3) HLD (hyperlipidemia) Current Visit: Yes Status: Acute Plan: continue statins
[2024-03-23] MEDS: ATORVASTATIN 20 MG TAB PO SCH (21:00)
[2024-03-23] MEDS: TAMSULOSIN 0.4 MG SR CAP PO SCH (21:12)
--- NOTE | 2024-03-24 02:12 | OP ---
Date of Procedure: 03/23/2024 Surgeon: Nazario Hoffmann Procedures Performed: 1.Left heart catheterization. 2.Selective coronary angiogram of bypass graft. 3.Percutaneous coronary intervention of the saphenous vein graft to the right posterior descending a rtery with Synergy 3.0 x 16 mm drug-eluting stent. Indication For Procedure: [id number] SD. Complications: None. Estimated Blood Loss: Less than 50 cc. Access: Right common femoral artery, closed by an Angio-Seal. Sedation Time: 40 minutes with 2 of Versed and 75 of fentanyl. Description Of Procedure: After risks, benefits, and alternatives were explained to the patient, the patient agreed to proceed with the procedure and signed informed consent. The patient was brought b ack to the mill laborer, prepped and draped in sterile fashion. Time-out was performed. Sedation was ad ministered. Next, the right common femoral artery ultrasound-guided micropuncture technique was obta ined. A 6-Japanese sheath was advanced without any difficulty. Next, a JL4 catheter for selective ang iogram of the left coronary system, that was exchanged for a JR4 catheter into the LV cavity. LVEDP was obtained. Pullback did not show any gradient. Same catheter was used for selective angiogram of the right coronary system and then the catheter was pulled back to the SVG to OM angiogram that was later pulled back for the subclavian and it was exchanged over a long J-wire to the 4-Japanese ALY cath eter that we used for selective angiogram of the GUNTER to LAD and that was later exchanged for a multi purpose catheter for selective angiogram of the right SVG to the RPDA. This catheter was exchanged w ith a multipurpose guide 6-Japanese to the SVG to the RPDA. Runthrough wire was passed across the lesi on. Next, Synergy 3.0 x 16 mm drug-eluting stent was placed across the lesion. After heparin was ad ministered, an ACT was therapeutic. Repeat angiogram shows KENDRA-2 flow so nitroglycerin was given IC repeatedly until the improvement of the flow in the arteries to KENDRA-3 flow. Repeat angiogram shows KENDRA-3 flow, no dissections or stent expansion. The wire was removed and catheter was removed over a J-wire and sheath was removed and Angio-Seal applied. Hemostasis was achieved, and the patient was moved back to Recovery in stable condition. Findings: 1.Left main is normal. 2.LAD mid occluded. 3.D1 small proximal 70% disease. 4.Left circ ostial to proximal 70% to 80% disease, gives 2 OMs with diffuse 50% disease. 5.RCA mid occluded. 6.Grafts. 7.GUNTER to LAD is patent. 8.SVG to RPDA mid 95% disease status post PCI with Synergy 3.0 x 16 mm drug-eluting stent. 9.SVG to OM is occluded. Assessment And Plan: 1.Significant saphenous vein graft to right posterior descending artery disease status post percutan eous coronary intervention with Synergy 3.0 x 16 mm drug-eluting stent. 2.Occluded saphenous vein graft to obtuse marginal with significant proximal left circ disease, plan will be to do an outpatient stress test to evaluate for possible interventions in the proximal and t he circ. Plan: 1.Aspirin 81 mg daily for life. 2.Brilinta 90 mg p.o. b.i.d. for 12 months. EYAL Voice ID: [id number] Report ID: [id number]
[2024-03-24 05:36] LABS: Absolute Eosinophils 0.1 K/uL (0-0.5); Absolute Monocytes 0.9 K/uL (0.1-1.3); Absolute Neutrophil 5.8 K/uL (1.8-8.0); Basophils % 0.4 % (0-1.3); Eosinophils % 1.3 % (0-4.4); Hematocrit 37.4 % (39.6-49.0); Hemoglobin 12.8 g/dL (13.6-17.9); Lymphocytes % 12.5 % (15.3-44.8); MCH 30.6 pg (27.0-35.0); MCHC 34.1 g/dL (32.0-36.0); MCV 89.8 fL (80-100); Monocytes % 11.1 % (3.3-12.3); Neutrophils % 74.7 % (41.7-73.7); Platelets 213 thou/uL (152-406); RBC Red Blood Cell Count 4.17 M/uL (4.33-5.43); Red Cell Distribution Width 12.9 % (12.1-15.2)
[2024-03-24 05:53] LABS: Anion Gap 7.4 mEq/L (5.0-15.0); Potassium 4.4 mEq/L (3.5-5.1)
[2024-03-24 05:54] LABS: Troponin High Sensitivity 19274.7 pg/mL (<58.9)
[2024-03-24] MEDS: LEVOTHYROXINE SOD 0.075 MG TAB PO SCH (06:27)
[2024-03-24] MEDS: TICAGRELOR 90 MG TABLET PO SCH (08:13)
[2024-03-24] MEDS ORDERED: ASPIRIN 81 MG CHEWABLE TABLET PO SCH (09:00)
--- NOTE | 2024-03-24 12:37 | P.PN ---
Subjective Date of Service: 03/24/24 Chief Complaint: CP with EKG changes Subjective: No new changes, No C/O voiced, Tolerating diet, Ambulating, Improving Review of Systems 10-point ROS is otherwise unremarkable Physical Examination - Vital Signs Temperature: 97.7 F Blood Pressure: 127/69 Pulse: 67 Respirations: 18 Pulse Ox (%): 95 - Physical Exam General: Alert, In no apparent distress HEENT: Atraumatic, PERRLA, EOMI Neck: Supple, JVD not distended Respiratory: Clear to auscultation bilaterally, Normal air movement Cardiovascular: Regular rate/rhythm, Normal S1 S2 Gastrointestinal: Normal bowel sounds, No tenderness Musculoskeletal: No tenderness Integumentary: No rashes Neurological: Normal speech, Normal tone, Normal affect Lymphatics: No axilla or inguinal lymphadenopathy - Studies Laboratory Data (last 24 hrs) 03/23/24 03/23/24 03/23/24 08:12 08:10 06:10 WBC Hgb Hct Plt Count PT INR APTT 64.8 H Cancelled Sodium Potassium BUN Creatinine Glucose Magnesium Total Bilirubin AST ALT Alkaline Phosphatase Triglycerides Cancelled Cholesterol Cancelled HDL Cholesterol Cancelled Cholesterol/HDL Ratio Cancelled 03/23/24 03/23/24 03/23/24 01:15 01:15 01:15 WBC 7.30 Hgb 14.4 Hct 43.8 Plt Count 225 PT 11.4 INR 1.02 APTT 30.8 Sodium 138 Potassium 3.8 BUN 17 Creatinine 1.37 H Glucose 127 H Magnesium 2.6 H Total Bilirubin 0.4 AST 14 L ALT 23 Alkaline Phosphatase 69 Triglycerides Cholesterol HDL Cholesterol Cholesterol/HDL Ratio 03/23/24 03/23/24 03/23/24 00:44 00:44 00:44 WBC Cancelled Hgb Cancelled Hct Cancelled Plt Count Cancelled PT Cancelled INR Cancelled APTT Sodium Cancelled Potassium Cancelled BUN Cancelled Creatinine Cancelled Glucose Cancelled Magnesium Cancelled Total Bilirubin Cancelled AST Cancelled ALT Cancelled Alkaline Phosphatase Cancelled Triglycerides Cholesterol HDL Cholesterol Cholesterol/HDL Ratio Medications List Reviewed: Yes Assessment And Plan - Current Problems (Diagnosis) (1) NSTEMI (non-ST elevated myocardial infarction) Current Visit: Yes Status: Acute Plan: patient with history of CAD s/p CABG x3, troponin elevated coronary angiogam done with PCI of SVG-RPDA. ASA 81 mg daily continue Brilinta 90 mg po BID (2) HTN (hypertension) Current Visit: Yes Status: Acute Plan: resume patient home medications (3) HLD (hyperlipidemia) Current Visit: Yes Status: Acute Plan: continue statins, vascepa
--- NOTE | 2024-03-24 13:17 | P.DS ---
Admission Date: 03/23/24 Discharge Date: 03/24/24 Reason for Admission: CP with EKG changes Brief History of Present Illness: Mr. Adams is an 84 yo with a pmh of prostate ca, hypertension, hyperlipidemia, CAD s/p CABG, hypothyroidism, and arthritis. He was seen a few days ago in the ED for chest pain and deemed safe to f/u outpatient. He is due next month for an outpatient stress test. He returned to the ED early this am with c/o chest pain intermittently over the left precordial area. He states this lasted longer than normal and worried him so he came in for evaluation. In the ED it was noted that he had deep t wave depressions in V2-V3. The hospitalist program was asked to ad violet him for further evaluation and cardiology consultation. He was placed on a Heparin drip in the ED. We requested a stress test be performed but secondary to a nationwide communication failure, no lexiscan can be obtained and the test must be delayed. We will admit Mr. Adams for further evaluation and await cardiology direction. Hospital Course: Mr. Adams has done well over the course of his hospitalization. His initial troponin was negative however the second was over 15,000 so he was taken to the Paediatric Physiotherapist. Dr. Hoffmann placed a stent in the SVGRPDA and recommended he continue aspirin 81 mg p.o. daily, Brilinta 90 mg p.o. twice daily, statins, Vascepa, and his home medications for hypertension. His PCP halved his metoprolol x 1, it was halved again during his hospital stay and amlodipine was discontinued. Mr. Adams should keep a blood pressure reading log and presented in follow-up to his PCP and Dr. Hoffmann <Imelda Brunner - Last Filed: 03/24/24 13:11> Admission Date: 03/23/24 Discharge Date: 03/26/24 Hospital Course: Pt seen and examined. I agree with the note by the MARKETING PROJECT LEAD. Ok to dc pt. follow up with Cardiology and PCP in clinic. <Ashley Morales - Last Filed: 03/26/24 23:11> Disposition: ROUTINE DISCHARGE Discharge Condition: GOOD Vital Signs/Physical Exam: Temp Pulse Resp BP Pulse Ox 97.7 F 67 18 127/69 95 03/24/24 12:37 03/24/24 12:37 03/24/24 12:37 03/24/24 12:37 03/24/24 12:37 General: Alert, In no apparent distress, Oriented x3 HEENT: Atraumatic, Normocephalic, PERRLA Neck: Supple Respiratory: Clear to auscultation bilaterally Cardiovascular: Normal pulses, Regular rate/rhythm, Normal S1 S2 Capillary refill: <2 Seconds Gastrointestinal: Normal bowel sounds, No tenderness Musculoskeletal: No clubbing Integumentary: No rashes, Other (angioseal to right femoral area dry and intact) Neurological: Normal speech, Normal tone, Normal affect Lymphatics: No axilla or inguinal lymphadenopathy External genitalia: Deferred Rectal: Deferred Laboratory Data at Discharge: WBC 7.80 thou/uL (4.3-10.9) 03/24/24 05:21 Hgb 12.8 g/dL (13.6-17.9) L 03/24/24 05:21 Hct 37.4 % (39.6-49.0) L 03/24/24 05:21 Plt Count 213 thou/uL (152-406) 03/24/24 05:21 PT 11.4 SECONDS (9.4-12.5) 03/23/24 01:15 INR 1.02 03/23/24 01:15 APTT 88.2 SECONDS (24.3-36.9) H 03/23/24 18:17 Sodium 139 mEq/L (136-145) 03/24/24 05:21 Potassium 4.4 mEq/L (3.5-5.1) 03/24/24 05:21 BUN 16 mg/dL (7-18) 03/24/24 05:21 Creatinine 1.33 mg/dL (0.70-1.30) H 03/24/24 05:21 Glucose 106 mg/dL (74-106) 03/24/24 05:21 Magnesium 2.6 mg/dL (1.6-2.4) H 03/23/24 01:15 Total Bilirubin 0.4 mg/dL (0.2-1.0) 03/23/24 01:15 AST 14 U/L (15-37) L 03/23/24 01:15 ALT 23 U/L (16-61) 03/23/24 01:15 Alkaline Phosphatase 69 U/L (45-117) 03/23/24 01:15 Triglycerides 86 mg/dL (<150) 03/24/24 05:21 Cholesterol 130 mg/dL (<200) 03/24/24 05:21 HDL Cholesterol 39 mg/dL (40-60) L 03/24/24 05:21 Cholesterol/HDL Ratio 3.33 03/24/24 05:21 <Brunner,Imelda Keny - Last Filed: 03/24/24 13:11> Vital Signs/Physical Exam: Temp Pulse Resp BP Pulse Ox 97.7 F 67 18 127/69 95 03/24/24 12:37 03/24/24 12:37 03/24/24 12:37 03/24/24 12:37 03/24/24 12:37 Laboratory Data at Discharge: WBC 7.80 thou/uL (4.3-10.9) 03/24/24 05:21 Hgb 12.8 g/dL (13.6-17.9) L 03/24/24 05:21 Hct 37.4 % (39.6-49.0) L 03/24/24 05:21 Plt Count 213 thou/uL (152-406) 03/24/24 05:21 PT 11.4 SECONDS (9.4-12.5) 03/23/24 01:15 INR 1.02 03/23/24 01:15 APTT 88.2 SECONDS (24.3-36.9) H 03/23/24 18:17 Sodium 139 mEq/L (136-145) 03/24/24 05:21 Potassium 4.4 mEq/L (3.5-5.1) 03/24/24 05:21 BUN 16 mg/dL (7-18) 03/24/24 05:21 Creatinine 1.33 mg/dL (0.70-1.30) H 03/24/24 05:21 Glucose 106 mg/dL (74-106) 03/24/24 05:21 Magnesium 2.6 mg/dL (1.6-2.4) H 03/23/24 01:15 Total Bilirubin 0.4 mg/dL (0.2-1.0) 03/23/24 01:15 AST 14 U/L (15-37) L 03/23/24 01:15 ALT 23 U/L (16-61) 03/23/24 01:15 Alkaline Phosphatase 69 U/L (45-117) 03/23/24 01:15 Triglycerides 86 mg/dL (<150) 03/24/24 05:21 Cholesterol 130 mg/dL (<200) 03/24/24 05:21 HDL Cholesterol 39 mg/dL (40-60) L 03/24/24 05:21 Cholesterol/HDL Ratio 3.33 03/24/24 05:21 <Ashley Morales - Last Filed: 03/26/24 23:11> Diet: AHA Activity: Ad jose <Brunner,Imelda Keny - Last Filed: 03/24/24 13:11> <Ashley Morales - Last Filed: 03/26/24 23:11> Home Medications: Fexofenadine HCl [Jada Allergy] 180 mg PO DAILY 07/21/16 Fluticasone Propionate [Flonase Allergy Relief] 9.9 ml NS DAILY 07/21/16 Folic Acid 400 mcg PO DAILY 07/21/16 Levothyroxine [Synthroid*] 75 mcg PO [id number] 07/21/16 Metoprolol Succinate [Toprol Xl*] 25 mg PO DAILY WITH BREAKFAST 07/21/16 Simvastatin [Zocor] 40 mg PO DAILY AFTER SUPPER 07/21/16 Aspirin [Aspirin EC 81 MG] 81 mg PO DAILY 03/23/24 Docusate Sodium [Stool Softener] 100 mg PO DAILY 03/23/24 Famotidine [Pepcid*] 20 mg PO BID 03/23/24 L.acidoph,Paracasei, B.lactis [Probiotic] 1 each PO DAILY 03/23/24 Montelukast [Singulair*] 10 mg PO DAILY 03/23/24 Psyllium Husk [Metamucil] 1 dose PO DAILY 03/23/24 Tamsulosin [Flomax*] 0.8 mg PO BEDTIME 03/23/24 icosapent ethyL [Vascepa 1 gm Cap] 2 gm PO BID 03/23/24 Metoprolol Tartrate [Lopressor*] 12.5 mg PO BID 6AM 6PM #60 tab 03/24/24 Tamsulosin [Flomax*] 0.8 mg PO BEDTIME 60 Days #60 cap 03/24/24 Ticagrelor [Brilinta*] 90 mg PO BID 90 Days #180 tab 03/24/24 New Medications: Ticagrelor [Brilinta*] 90 mg PO BID 90 Days #180 tab Tamsulosin [Flomax*] 0.8 mg PO BEDTIME 60 Days #60 cap Metoprolol Tartrate [Lopressor*] 12.5 mg PO BID 6AM 6PM #60 tab Physician Discharge Instructions: Mr. Adams has done well over the course of his hospitalization. His initial tr oponin was negative however the second was over 15,000 so he was taken to the Paediatric Physiotherapist. Dr. Hoffmann placed a stent in the SVGRPDA and recommended he continue aspirin 81 mg p.o. daily, Brilinta 90 mg p.o. twice daily, statins, Vascepa, and his home medications for hypertension. His PCP halved his metoprolol x 1, it was halved again during his hospital stay and amlodipine was discontinued. Mr. Adams should keep a blood pressure reading log and presented in follow-up to his PCP and Dr. Tahira Hagan to DC IV and DC home Follow-up with primary care provider in 1 to 2 weeks Follow-up with cardiology in 1 week Please call the inpatient unit for any questions or concerns regarding hospital stay Return to the ER for worsening symptoms Followup: Blossom Martinez MD [Primary Care Provider] - Nazario Hoffmann MD [ACTIVE - CAN ADMIT] -
--- NOTE | 2024-03-24 13:18 | P.DS ---
Admission Date: 03/23/24 Discharge Date: 03/24/24 Disposition: ROUTINE DISCHARGE Discharge Condition: GOOD Reason for Admission: CP with EKG changes Brief History of Present Illness: Mr. Adams is an 84 yo with a pmh of prostate ca, hypertension, hyperlipidemia, CAD s/p CABG, hypothyroidism, and arthritis. He was seen a few days ago in the ED for chest pain and deemed safe to f/u outpatient. He is due next month for an outpatient stress test. He returned to the ED early this am with c/o chest pain intermittently over the left precordial area. He states this lasted longer than normal and worried him so he came in for evaluation. In the ED it was noted that he had deep t wave depressions in V2-V3. The hospitalist program was asked to admit him for further evaluation and cardiology consultation. He was placed on a Heparin drip in the ED. We requested a stress test be performed but secondary to a nationwide communication failure, no lexiscan can be obtained and the test must be delayed. We will admit Mr. Adams for further evaluation and await cardiology direction. Hospital Course: Mr. Adams is an 84 yo with a pmh of prostate ca, hypertension, hyperlipidemia, CAD s/p CABG, hypothyroidism, and arthritis. He was seen a few days ago in the ED for chest pain and deemed safe to f/u outpatient. He is due next month for an outpatient stress test. He returned to the ED early this am with c/o chest pain intermittently over the left precordial area. He states this lasted longer than normal and worried him so he came in for evaluation. In the ED it was noted that he had deep t wave depressions in V2-V3. The hospitalist program was asked to admit him for further evaluation and cardiology consultation. He was placed on a Heparin drip in the ED. We requested a stress test be performed but secondary to a nationwide communication failure, no lexiscan can be obtained and the test must be delayed. We will admit Mr. Adams for further evaluation and await cardiology direction. Vital Signs/Physical Exam: Temp Pulse Resp BP Pulse Ox 97.7 F 67 18 127/69 95 03/24/24 12:37 03/24/24 12:37 03/24/24 12:37 03/24/24 12:37 03/24/24 12:37 Laboratory Data at Discharge: WBC 7.80 thou/uL (4.3-10.9) 03/24/24 05:21 Hgb 12.8 g/dL (13.6-17.9) L 03/24/24 05:21 Hct 37.4 % (39.6-49.0) L 03/24/24 05:21 Plt Count 213 thou/uL (152-406) 03/24/24 05:21 PT 11.4 SECONDS (9.4-12.5) 03/23/24 01:15 INR 1.02 03/23/24 01:15 APTT 88.2 SECONDS (24.3-36.9) H 03/23/24 18:17 Sodium 139 mEq/L (136-145) 03/24/24 05:21 Potassium 4.4 mEq/L (3.5-5.1) 03/24/24 05:21 BUN 16 mg/dL (7-18) 03/24/24 05:21 Creatinine 1.33 mg/dL (0.70-1.30) H 03/24/24 05:21 Glucose 106 mg/dL (74-106) 03/24/24 05:21 Magnesium 2.6 mg/dL (1.6-2.4) H 03/23/24 01:15 Total Bilirubin 0.4 mg/dL (0.2-1.0) 03/23/24 01:15 AST 14 U/L (15-37) L 03/23/24 01:15 ALT 23 U/L (16-61) 03/23/24 01:15 Alkaline Phosphatase 69 U/L (45-117) 03/23/24 01:15 Triglycerides 86 mg/dL (<150) 03/24/24 05:21 Cholesterol 130 mg/dL (<200) 03/24/24 05:21 HDL Cholesterol 39 mg/dL (40-60) L 03/24/24 05:21 Cholesterol/HDL Ratio 3.33 03/24/24 05:21 Home Medications: Fexofenadine HCl [Jada Allergy] 180 mg PO DAILY 07/21/16 Fluticasone Propionate [Flonase Allergy Relief] 9.9 ml NS DAILY 07/21/16 Folic Acid 400 mcg PO DAILY 07/21/16 Levothyroxine [Synthroid*] 75 mcg PO [id number] 07/21/16 Metoprolol Succinate [Toprol Xl*] 25 mg PO DAILY WITH BREAKFAST 07/21/16 Simvastatin [Zocor] 40 mg PO DAILY AFTER SUPPER 07/21/16 Aspirin [Aspirin EC 81 MG] 81 mg PO DAILY 03/23/24 Docusate Sodium [Stool Softener] 100 mg PO DAILY 03/23/24 Famotidine [Pepcid*] 20 mg PO BID 03/23/24 L.acidoph,Paracasei, B.lactis [Probiotic] 1 each PO DAILY 03/23/24 Montelukast [Singulair*] 10 mg PO DAILY 03/23/24 Psyllium Husk [Metamucil] 1 dose PO DAILY 03/23/24 Tamsulosin [Flomax*] 0.8 mg PO BEDTIME 03/23/24 icosapent ethyL [Vascepa 1 gm Cap] 2 gm PO BID 03/23/24 Metoprolol Tartrate [Lopressor*] 12.5 mg PO BID 6AM 6PM #60 tab 03/24/24 Tamsulosin [Flomax*] 0.8 mg PO BEDTIME 60 Days #60 cap 03/24/24 Ticagrelor [Brilinta*] 90 mg PO BID 90 Days #180 tab 03/24/24 New Medications: Ticagrelor [Brilinta*] 90 mg PO BID 90 Days #180 tab Tamsulosin [Flomax*] 0.8 mg PO BEDTIME 60 Days #60 cap Metoprolol Tartrate [Lopressor*] 12.5 mg PO BID 6AM 6PM #60 tab Physician Discharge Instructions: Continue ad jose activity. Take home meds as prescribed. Take aspirin and brilinta for at least 1 year. Follow up with PCP and Cardiology within 1 - 2 weeks Diet: AHA Activity: Ad jose Followup: Nazario Hoffmann MD [ACTIVE - CAN ADMIT] - Blossom Martinez MD [Primary Care Provider] -
[2024-03-24] MEDS ORDERED: ENOXAPARIN 40 MG/0.4 ML SQ SCH (17:00)
--- NOTE | 2024-03-26 16:39 | EKG ---
Test Date: 2024-03-23 Test Time: 16:23:12 Napper Runner: KANNAN MEASUREMENT RESULTS: Intervals: Rate: 74 MA: 188 QRSD: 134 QT: 434 QTc: 481 [place]: P: 67 MA: 188 QRS: -66 T: 74 INTERPRETIVE STATEMENTS: Normal sinus rhythm Right bundle branch block Left anterior fascicular block Bifascicular block T wave abnormality, consider lateral ischemia Abnormal ECG Compared to ECG 03/23/2024 00:35:53 Right bundle-branch block now present Left anterior fascicular block now present Bifascicular block now present T-wave abnormality now present Possible ischemia now present First degree AV block no longer present Left-axis deviation no longer present Electronically Signed On 03-26-24 16:32:18 CDT by Fernando Gaitan
--- NOTE | 2024-03-26 16:43 | EKG ---
Test Date: 2024-03-23 Test Time: 00:35:53 Food And Beverage Controller: MICHELLE MEASUREMENT RESULTS: Intervals: Rate: 69 MD: 216 QRSD: 146 QT: 450 QTc: 482 [place]: P: 65 MD: 216 QRS: -41 T: 91 INTERPRETIVE STATEMENTS: Sinus rhythm with 1st degree AV block Left axis deviation Nonspecific intraventricular block Abnormal ECG Compared to ECG 03/20/2024 12:24:19 First degree AV block now present Left-axis deviation now present Right bundle-branch block no longer present Left anterior fascicular block no longer present Bifascicular block no longer present Electronically Signed On 03-26-24 16:33:08 CDT by Fernando Gaitan
[2024-03-29 12:56] VITALS: BP 127/69; TEMP 97.7; O2SAT 96; BMI 26.3
== END 2024-03-24 14:29 | disposition home or self-care (01) ==
LOC: ER 00:38 → 2ND 09:42
PROVIDERS: ADMIT Hospitalist; ATTEND Hospitalist
PROC: 027034Z Dilation of Coronary Artery, One Artery with Drug-eluting Intraluminal Device, Percutaneous Approach (ICD-10-PCS; principal; 2024-03-23)
PROC: 4A023N7 Measurement of Cardiac Sampling and Pressure, Left Heart, Percutaneous Approach (ICD-10-PCS; 2024-03-23)
PROC: B2121ZZ Fluoroscopy of Single Coronary Artery Bypass Graft using Low Osmolar Contrast (ICD-10-PCS; 2024-03-23)
PROC: B2111ZZ Fluoroscopy of Multiple Coronary Arteries using Low Osmolar Contrast (ICD-10-PCS; 2024-03-23)
DX: I21.4 Non-ST elevation (NSTEMI) myocardial infarction (principal); I25.110 Atherosclerotic heart disease of native coronary artery with unstable angina pectoris; I25.82 Chronic total occlusion of coronary artery; I25.810 Atherosclerosis of coronary artery bypass graft(s) without angina pectoris; I10 Essential (primary) hypertension; E78.5 Hyperlipidemia, unspecified; E03.9 Hypothyroidism, unspecified; K21.9 Gastro-esophageal reflux disease without esophagitis; M19.90 Unspecified osteoarthritis, unspecified site; Z87.891 Personal history of nicotine dependence; Z85.46 Personal history of malignant neoplasm of prostate; Z79.82 Long term (current) use of aspirin; Z79.899 Other long term (current) drug therapy; Z88.2 Allergy status to sulfonamides; Z88.8 Allergy status to other drugs, medicaments and biological substances; Z82.49 Family history of ischemic heart disease and other diseases of the circulatory system
CPT/HCPCS: 93005 ×2; 85025 ×2; 80048 ×2; 36415 ×2; 83735; 85610; 80061; 80076; 85347; 85730 ×3; 84484 ×3; 83880; 71045; 93459; 76937; 96375; 96374; 99285; C1893; C1760; Q9967; G0269; C1725; C9604; J1644 ×2; J2001; J2470; J2250; J3010; J2405; G0378 ×4; J7040; 99152; 99153; C9600

== ENCOUNTER 2025-06-18 07:55 | Day surgery (SDC) | payer OTHER ==
[2025-06-17 09:07] LABS: Absolute Lymphocytes (CBC) 1.1 K/uL (0.7-4.9); Hematocrit 41.3 % (39.6-49.0); Hemoglobin 13.8 g/dL (13.6-17.9); MCH 30.2 pg (27.0-35.0); MCHC 33.5 g/dL (32.0-36.0); MCV 90.1 fL (80-100); MPV 8.3 fL (7.6-11.3); Nucleated RBC Absolute Count 0.0 (0-0); Nucleated Red Blood Cells % 0.0 % (0-0); RBC Red Blood Cell Count 4.58 M/uL (4.33-5.43); White Blood Count 6.90 thou/uL (4.3-10.9)
[2025-06-17 09:14] LABS: PT Prothrombin Time 12.4 SECONDS (10-13.0); PTT, Activated Partial Thromb 29.7 SECONDS (27.2-37.4); Protime INR 1.1
[2025-06-17 09:16] LABS: Anion Gap 7.6 mEq/L (5.0-15.0); BUN Blood Urea Nitrogen 15.0 mg/dL (7-18); Glucose Level 105.0 mg/dL (74-106); Potassium 4.6 mEq/L (3.5-5.1)
--- NOTE | 2025-06-17 12:24 | RAD REPORT ---
EXAMINATION: TWO VIEW CHEST XR CLINICAL INDICATION: Male, 85 years old. Hypertension. pre op for agriculture laborer TECHNIQUE: 2 view radiographs of the chest were performed. COMPARISON: 03/23/2024 FINDINGS: The lungs are well inflated with stable left basilar pleural-parenchymal opacity. No pneumothorax or other sizable effusion. The heart is normal in size. Mediastinal contours are unremarkable. IMPRESSION: No acute abnormalities. Stable findings as above.
[2025-06-18] MEDS ORDERED: LIDOCAINE 1% 20 ML MDV ONE (08:04)
[2025-06-18] MEDS ORDERED: HEPA 1000U/500MLS 2,000 UNIT/1,000 ML BAG IV ONE (08:04)
[2025-06-18] MEDS ORDERED: HEPARIN 10,000 UNIT/10 ML VIAL IV ONE (08:04)
[2025-06-18] MEDS ORDERED: ATROPINE SULF 1 MG/10 ML SYR IV ONE (08:04)
[2025-06-18] MEDS ORDERED: HEPARIN 5000 UNIT/ML 1 ML VIAL ONE (08:05)
[2025-06-18] MEDS ORDERED: NITROGLYCERIN/D5W 50 MG/250 ML BTL IV ONE (08:05)
[2025-06-18] MEDS ORDERED: NALOXONE 0.4 MG/ML VIAL ONE (08:14)
[2025-06-18] MEDS ORDERED: FLUMAZENIL 0.1 MG/ML (5 mL VIAL) IV ONE (08:15)
[2025-06-18] MEDS ORDERED: NA CHLORIDE 0.9% 500 ML ONE (08:15)
[2025-06-18 08:28] VITALS: TEMP 97.8
[2025-06-18] MEDS ORDERED: ASPIRIN 81 MG CHEWABLE TABLET ONE (08:30)
[2025-06-18] MEDS ORDERED: MIDAZOLAM HCL 2 MG/2 ML INJ ONE (08:38)
[2025-06-18] MEDS ORDERED: FENTANYL CITR 100 MCG/2 ML ONE (08:38)
[2025-06-18 12:25] VITALS: O2SAT 100
[2025-06-18 12:48] VITALS: BP 128/70
--- NOTE | 2025-06-19 22:53 | OP ---
Date of Procedure: 06/18/2025 Surgeon: Nazario Hoffmann Procedure Performed: PCI of left main into circ. Indication For Procedure: Chest pains, abnormal stress test. Complications: None. Estimated Blood Loss: Less than 50 cc. Access: Right radial, closed by TR band. Description Of Procedure: After risks, benefits, and alternatives were explained to the patient, the patient agreed to proceed with procedure and signed informed consent. The patient was brought back to the laborer filter plant, prepped and draped in sterile fashion. Time-out was performed. Sedation was admini stered. Next, right radial access was obtained using ultrasound-guided micropuncture technique. XB LAD catheter 3.5 was advanced over a J-wire to the aortic root. Selective angiogram of the left minerva nary system was done using that catheter. Next, we passed the run-through wire across the lesion. W e pre-dilated the lesion with an NC 2.5 mm balloon. Next, Synergy 3.0 x 16 mm drug-eluting stent was placed across the lesion, postdilated with an NC 3.5 mm balloon. Final angiogram shows KENDRA-3 flow. The catheter was removed over a J-wire. Sheath was removed. TR band was applied. Hemostasis achi eved. The patient was moved back to Recovery in stable condition. Findings: 1. Left main normal. 2. LAD mid 100% occluded. 3. Left circ; ostial to proximal 80% disease, status post PCI with Synergy 3.0 x 16 mm drug-eluting s tent from left main into circ, then mid to distal tortuous with mild luminal irregularities, OM1/OM2 diffuse mild luminal irregularities. Assessment And Plan: Significant left main and left circ disease, status post PCI with Synergy 3.0 x 16 mm drug-eluting stent. Plan: 1. To continue aspirin 81 mg daily for life. 2. Continue Brilinta 90 mg p.o. b.i.d. for 12 months. ISMA/GILBERT Voice ID: [id number] Report ID: [id number]
== END 2025-06-18 12:40 | disposition home or self-care (01) ==
LOC: CCL 07:55
PROVIDERS: ATTEND Internal Medicine Interventional Cardiology
DX: I25.10 Atherosclerotic heart disease of native coronary artery without angina pectoris (principal); I25.82 Chronic total occlusion of coronary artery; I77.1 Stricture of artery; I34.0 Nonrheumatic mitral (valve) insufficiency; I13.0 Hypertensive heart and chronic kidney disease with heart failure and stage 1 through stage 4 chronic kidney disease, or unspecified chronic kidney disease; I50.22 Chronic systolic (congestive) heart failure; N18.2 Chronic kidney disease, stage 2 (mild); I65.23 Occlusion and stenosis of bilateral carotid arteries; E78.2 Mixed hyperlipidemia; E03.9 Hypothyroidism, unspecified; Z87.891 Personal history of nicotine dependence; Z79.899 Other long term (current) drug therapy; Z88.0 Allergy status to penicillin; Z88.2 Allergy status to sulfonamides; Z88.8 Allergy status to other drugs, medicaments and biological substances; Z82.49 Family history of ischemic heart disease and other diseases of the circulatory system
CPT/HCPCS: 93005; 85025; 80048; 36415; 85610; 85347 ×2; 85730; 71046; 93454; 76937; C1893; Q9966; C1725; C9600; J1644 ×2; J2003; J2250; J3010; J7040; C1874; 99152; J0461; J2312